=== PATIENT | female | born 1995 | race Caucasian/White ===

== ENCOUNTER 2024-09-27 20:55 | Emergency (ER) | payer OTHER ==
[2024-09-27 22:34] VITALS: TEMP 98.1
[2024-09-27 23:49] LABS: VENOUS BASE EXCESS -2.7 (-2.0-2.0); VENOUS HCO3 23.6 MMOL/L (23.0-27.0); VENOUS O2 SATURATION 63.2 % (60.0-80.0); VENOUS PARTIAL PRESSURE CO2 46.7 mmHg (38.0-50.0); VENOUS PARTIAL PRESSURE O2 34.1 mmHg (30.0-50.0); VENOUS PH 7.322 UNITS (7.330-7.430); VENOUS STANDARD HCO3 21.4 MMOL/L; VENOUS TOTAL CO2 25.1 MMOL/L (24.0-28.0)
[2024-09-27] MEDS: METOCLOPRAMIDE INJ 10MG/2ML VIAL IV ONE (23:52)
[2024-09-27] MEDS: diphenhydrAMINE 50MG/ML VIAL IV ONE (23:52)
[2024-09-27] MEDS: KETOROLAC 30 MG/ML 1ML VIAL IV ONE (23:53)
[2024-09-27] MEDS: NS (Normal Saline) 0.9% 1,000 ML IV ONE (23:53)
[2024-09-28 00:24] LABS: BASO # 0.1 10^3/uL (0.0-0.2); BASO % 0.6 % (0.0-1.0); EOS # 0.1 10^3/uL (0.0-0.5); EOS % 1.2 % (0.0-3.0); HEMATOCRIT 39.1 % (36.0-47.0); HEMOGLOBIN 13.1 g/dl (12.0-15.5); LYMPH # 3.1 10^3/uL (1.5-5.0); LYMPH % 34.9 % (24.0-44.0); MEAN CORPUSCULAR HGB CONC 33.5 g/dl (32.0-36.5); MEAN CORPUSCULAR VOLUME 86.7 fl (80.0-96.0); MONO # 0.7 10^3/uL (0.0-0.8); MONO % 7.3 % (2.0-8.0); NEUTROPHILS % 55.8 % (36.0-66.0); PLATELET COUNT, AUTOMATED 229 10^3/uL (150-450); RED BLOOD COUNT 4.51 10^6/uL (4.00-5.40); WHITE BLOOD COUNT 8.9 10^3/uL (4.0-10.0)
[2024-09-28 00:28] LABS: CPK CREATINE PHOSPHOKINASE 58 U/L (34-145)
[2024-09-28 00:29] LABS: ALBUMIN 3.7 G/DL (3.2-5.2); ALKALINE PHOSPHATASE 63 U/L (35-104); ALT/SGPT 12 U/L (7.0-40); AST/SGOT < 8 U/L (<34); BILIRUBIN,DIRECT < 0.1 MG/DL (<0.4); BILIRUBIN,TOTAL 0.2 MG/DL (0.3-1.2); BLOOD UREA NITROGEN 15 MG/DL (9-23); CARBON DIOXIDE LEVEL 24 MMOL/L (20-31); CHLORIDE LEVEL 107 MMOL/L (98-107); CK-MB VALUE MASS < 1.0 NG/ML (<3.6); CREATININE FOR GFR 0.83 MG/DL (0.55-1.30); GLOMERULAR FILTRATION RATE > 90.0 (>60); GLUCOSE, FASTING 86 MG/DL (60-100); MB/CK RELATIVE INDEX 1.72 (< OR =4); POTASSIUM SERUM 3.9 MMOL/L (3.5-5.1); SODIUM LEVEL 140 MMOL/L (136-145); TOTAL PROTEIN 7.2 G/DL (5.7-8.2)
[2024-09-28] MEDS ORDERED: ISOVUE-370 76% 100ML VIAL As Ordered ONE (01:01)
[2024-09-28 01:15] LABS: CK-MB VALUE MASS < 1.0 NG/ML (<3.6)
[2024-09-28 01:17] LABS: CPK CREATINE PHOSPHOKINASE 56 U/L (34-145); MB/CK RELATIVE INDEX 1.78 (< OR =4)
[2024-09-28 02:15] VITALS: BP 102/69; O2SAT 99
== END 2024-09-28 02:24 | disposition home or self-care (01) ==
LOC: M ED 20:55
DX: R55 Syncope and collapse (principal); B34.8 Other viral infections of unspecified site; Z88.2 Allergy status to sulfonamides
CPT/HCPCS: 70450; 71275; 80048; 80076; 82550; 82553; 82803; 83605; 83880; 84484; 85025; 87486; 87581; 87633; 87798; 93005; 93041; 94760; 96361; 96374; 96375; 99285; J1200; J1885; J2765; Q9967